=== PATIENT | male | born 1975 | race African-American/Black ===

== ENCOUNTER 2023-06-21 17:28 | Emergency (ER) | payer OTHER ==
[~2023-06-21] VITALS: Ht 182.9 cm; Wt 131.0 kg
[2023-06-21 17:40] VITALS: O2SAT 98
[2023-06-21] MEDS: KETOROLAC 60MG/2ML VIAL IM ONE (18:31)
[2023-06-21] MEDS: HYDROCODONE/ACETAMINOPHEN 5/325MG TABLET PO ONE (18:32)
[2023-06-21] MEDS ORDERED: HYDR-4001 MT (20:37)
[2023-06-21] MEDS ORDERED: IBUP-2028 MT (20:37)
[2023-06-21 21:02] VITALS: BP 153/59; PULSE 70; RESP 13; TEMP 98.3
== END 2023-06-22 07:54 | disposition home or self-care (01) ==
LOC: ER 17:28
DX: S09.8XXA Other specified injuries of head, initial encounter (principal); M25.511 Pain in right shoulder; M54.2 Cervicalgia; M54.9 Dorsalgia, unspecified; M25.552 Pain in left hip; I10 Essential (primary) hypertension; X58.XXXA Exposure to other specified factors, initial encounter; Y93.89 Activity, other specified; Y92.89 Other specified places as the place of occurrence of the external cause; Y99.8 Other external cause status
CPT/HCPCS: 73030; 70450; 72125; 72128; 72131; 72192; 96372; 99285; J1885; Z7610 ×4